=== PATIENT | male | born 1960 | race Caucasian/White ===

== ENCOUNTER 2020-09-23 20:23 | Emergency (ER) | payer OTHER ==
[~2020-09-23] VITALS: Ht 175.3 cm; Wt 79.4 kg
[~2020-09-23 20:23] MED LIST: IBUPROFEN 800800 M1 PO; KEFLEX500 MG PO; NOHOMEMEDICATIONS; NORCO 5-325 TA1 EACH PO
[2020-09-23] MEDS ORDERED: TESSALON PERLE100 MG PO (22:40)
[2020-09-23 23:02] VITALS: BP 183/113
== END 2020-09-23 23:02 | disposition home or self-care (01) ==
LOC: ER 20:23
DX: R05 Cough (principal); Z79.1 Long term (current) use of non-steroidal anti-inflammatories (NSAID); Z79.899 Other long term (current) drug therapy; Z20.828 Contact with and (suspected) exposure to other viral communicable diseases

== ENCOUNTER 2021-03-13 11:36 | Emergency (ER) | payer OTHER ==
[~2021-03-13] VITALS: Ht 175.3 cm; Wt 81.7 kg
--- NOTE | ~2021-03-13 | EMS ---
[address] [address] EMS Patient Care Report Name: LINDA ART Room #: DEP ZAID Leigh#: [id number] Admission: 03/13/21 Attend Phys: Discharge: 03/13/21 Date of : 60 Report #: [id number] THIS REPORT FOR: //name// Report Transmitted: 03/13/2021 16:36 EMS Care Summary [place], [place]/[facility] Incident [id number] @ 03/13/2021 11:00 Incident Location [address] [place] [address] Patient LINDA ART Male, 60 Years 1960 Patient Address [address] [place] [address] Patient History Hypoglycemia,Novel Coronavirus (COVID-19), Patient Allergies No known allergies, Patient Medications None Reported, Chief Complaint Syncope, then L pinky toe dislocation Disposition Transported No Lights/[place] Dispatch Reason Falls Transported To [facility] Narrative Station 28 responded to the scene of a Fall. Arrived at originally dispatched address and finding no such address on [address]. Both m528 and P28 request dispatch do a callback for address confirmation. After several minute wait and not hearing back, M528 relocates to [place] and finds the corrected address [address] [address] EMS Patient Care Report Name: LINDA ART Room #: DEP Michael#: [id number] Admission: 03/13/21 Attend Phys: Discharge: 03/13/21 Date of : 60 Report #: [id number] just as dispatch corrects it. Upon arrival, pt found SANCHEZ and sitting on couch. He was reportedly in the bathroom, passed out, then his L foot slid forward and struck a solid object, thus dislocation his L pinky toe. Pt denies remembering the fall, but remembers waking up after striking his toe. Denies hitting head/neck/back and is not on blood thinners. Pt reports having intermittent hypoglycemia as well as recovered from COVID about 2 wks ago. Initial assessment performed, and d-stick acquired. Pt escorted out to cot. Secured on via straps, rails up, then moved to back of ambulance. Primary ALS assessment performed, vitals established, then transport to [facility] initiated. Contacted with a 3 minute ETA, and report given. During transport, pt remains stable and reports no additional complaints. Arrived at and pt to ER HW . Report to RN then care released. Initial Vitals @11:23P: 68,R: 17,BP: 135/83,Pain: 4/10,GCS: 15,Glucose: 92,SpO2: 96,Revised Trauma: 12, Assessments @11:23MENTAL:Person Oriented,Time Oriented,Event Oriented,Place Oriented,SKIN:HEENT:LUNG SOUNDS:ABDOMEN:PELVIS//GI:EXTREMITIES:Left Leg: Other,PULSE:Radial: 2+ Normal,NEURO: Impression Syncope / Fainting Procedures @11:23ALS AssessmentResponse: UnchangedSucceeded Timeline 10:58,Call Received 10:58,Dispatch Notified 11:00,Dispatched 11:02,En Route 11:14,On Scene 11:15,At Patient 11:23,ALS Assessment,Response: UnchangedSucceeded, 11:23,BP: 135/83 M,PULSE: 68,RR: 17 R,SPO2: 96 Ox,ETCO2: ,B,PAIN: 4,GCS: 15, 11:24,Depart Scene 11:30,At Destination 11:48,Call Closed [facility] [address] [place] [address] EMS Patient Care Report Name: LINDA ART Room #: [facility] [id number] Admission: 03/13/21 Attend Phys: Discharge: 03/13/21 Date of : 60 Report #: [id number] Disclaimer [email or web address] Copyright 202 [employer] This EMS Care Summary contains data elements from the applicable legal record (which may be displayed differently). It is designed to provide pertinent information for the following purposes: continuity of care, clinical quality, and state data reporting. The complete legal record is available to ED staff and administrators of the receiving hospital in [employer]'s Patient Tracker. All data is provided "as is."
[~2021-03-13 11:36] MED LIST changes: +TESSALON PERLE100 MG PO
--- NOTE | 2021-03-13 12:58 | EKG ---
[address] [address] ELECTROCARDIOGRAM REPORT Name: LINDA ART [facility] [id number] Admission: 03/13/21 Attend Phys: Discharge: Date of : 60 Report #: [id number] [facility] ED Test Date: 2021-03-13 Test Time: 12:33:13 Pat Name: LINDA ART Department: Room: Gender: M [employer] Specialist: LINDSAY : 1960 Requested By: Ariane Ramirez Order Number: [id number] MD: Trenton Adams Measurements Intervals [place] Rate: 64 P: 56 SD: 160 QRS: -43 QRSD: 99 T: 20 QT: 430 QTc: 444 Interpretive Statements Sinus rhythm Left axis deviation No previous ECG available for comparison Electronically Signed On 03-13-2021 12:58:03 CDT by Trenton Adams [email or web address] <ELECTRONICALLY SIGNED> By: Trenton Adams MD, [facility] 03/13/21 1258 1233 1233 Trenton Adams MD, FACC /EPI
[2021-03-13 13:11] LABS: ABSOLUTE NEUTROPHILS 6.1 thou/uL (1.4-8.2); BASOPHILS 0.7 % (0.0-2.0); HEMATOCRIT 43.5 % (42.0-52.0); HEMOGLOBIN 14.9 gm/dL (14.0-18.0); LYMPHOCYTES 14.1 % (24.0-44.0); MCH 29.8 pg (26.0-34.0); MCHC 34.3 g/dL (28.0-37.0); MCV 86.7 fL (80.0-100.0); PLATELET COUNT 249 thou/uL (150-400); POLYS 72.2 % (36.0-66.0); RBC 5.02 mil/uL (4.50-6.00); RDW 13.3 % (10.5-14.5); WBC 8.5 thou/uL (4.0-11.0)
[2021-03-13 13:17] LABS: ANION GAP 11 mmol/L (7-16); BUN 26 mg/dL (7-18); CALCIUM 8.9 mg/dL (8.5-10.1); CHLORIDE 102 mmol/L (98-107); CO2 25 mmol/L (21-32); CREATININE 1.3 mg/dL (0.7-1.3); GLUCOSE 118 mg/dL (74-106); POTASSIUM 3.6 mmol/L (3.5-5.1); SODIUM 138 mmol/L (136-145)
[2021-03-13 13:27] LABS: SGOT 23 U/L (15-37); SGPT 41 U/L (16-63); TOTAL BILIRUBIN 2.6 mg/dL (0.2-1.0); TOTAL PROTEIN 7.2 g/dL (6.4-8.2); TROPONIN-I <0.06 ng/mL (<0.06)
[2021-03-13 14:15] LABS: URINE BILIRUBIN NEGATIVE (Negative); URINE BLOOD NEGATIVE (Negative); URINE CLARITY CLEAR; URINE COLOR YELLOW; URINE GLUCOSE-RANDOM* NEGATIVE (Negative); URINE KETONES TRACE (Negative); URINE LEUKOCYTES-REFLEX NEGATIVE (Negative); URINE NITRITE-REFLEX NEGATIVE (Negative); URINE PROTEIN (DIPSTICK) TRACE (Negative); URINE SPECIFIC GRAVITY 1.025 (1.005-1.035); URINE UROBILINOGEN 0.2 E.U./dl (0.2-1.0)
[2021-03-13 14:24] LABS: AMP/METHAMP Negative (Negative); BARBITURATES Negative (Negative); BENZODIAZEPINES Negative (Negative); COCAINE POSITIVE (Negative); METHADONE Negative (Negative); OPIATES Negative (Negative); PCP Negative (Negative)
[2021-03-13 15:24] VITALS: BP 131/88
== END 2021-03-13 15:26 | disposition home or self-care (01) ==
LOC: ER 11:36
PROVIDERS: Emergency Medicine
DX: S92.512A Displaced fracture of proximal phalanx of left lesser toe(s), initial encounter for closed fracture (principal); Z20.822 Contact with and (suspected) exposure to COVID-19; R55 Syncope and collapse; F14.10 Cocaine abuse, uncomplicated; Z90.89 Acquired absence of other organs; Z98.890 Other specified postprocedural states; W18.39XA Other fall on same level, initial encounter; Y93.89 Activity, other specified; Y92.89 Other specified places as the place of occurrence of the external cause; Y99.8 Other external cause status